=== PATIENT | female | born 1985 | race Caucasian/White ===

== ENCOUNTER 2016-11-26 14:45 | Emergency (ER) | payer OTHER ==
[2016-11-26 14:49] VITALS: BP 143/85; PULSE 76; TEMP 98.3
[2016-11-26] MEDS ORDERED: ONDANSETRON 4 MG/2 ML VIAL IVPB ONE (15:58)
[2016-11-26] MEDS ORDERED: SODIUM CHLORIDE 1,000 ML IV STA (15:58)
[2016-11-26] MEDS ORDERED: FAMOTIDINE 20 MG/50 ML IVPB 50 ML IVPB ONE ×2 (15:59→16:04)
[2016-11-26] MEDS ORDERED: SUCRALFATE 1 GM/10 ML UNIT DOSE CUPS PO STA (15:59)
[2016-11-26] MEDS ORDERED: SUCRALFATE 1 GM TABLET (FP) ONE (16:04)
[2016-11-26] MEDS ORDERED: ONDANSETRON 4 MG/2 ML VIAL ONE (16:04)
--- NOTE | 2016-11-26 16:07 | PDOC ---
History of Present Illness - General Chief Complaint: Vomiting Blood Stated Complaint: VOMITING BLOOD, PAIN Time Seen by Provider: 11/26/16 15:36 History Source: Patient - History of Present Illness Initial Comments: 11/26/16 16:04 Complaint nausea vomiting blood and vomit History of present illness: This is a 31-year-old with no significant past medical history who presents to the emergency department with 6 month history of GI discomfort located in her epigastrium intermittent usually at night associated after meeting occasionally would vomit. Patient had similar symptoms last week went to an emergency department was prescribed Levaquin which she finished. Last night patient had approximately 6 episodes of vomiting it was dark with some streaks of blood. Last episode of vomiting was 2 AM. Today at approximately 3:30 PM patient's partner convince her to come to the emergency department for evaluation pain is been intermittent moderate 5 out of 10 achy in nature worsened with drinking and eating alleviated by rest Past History - Travel Traveled outside of the country in the last 30 days: No Close contact w/someone who was outside of country & ill: No - Past Medical History Allergies/Adverse Reactions: Allergies Allergy/AdvReac Type Severity Reaction Status Date / Time No Known Allergies Allergy Verified 11/26/16 14:49 Home Medications: Ambulatory Orders Ondansetron [Ondansetron Odt] 8 mg PO TID #20 tab.rapdis 11/26/16 HTN: Yes - Suicide/Smoking/Psychosocial Hx Smoking History: Never smoked Hx Alcohol Use: No Drug/Substance Use Hx: No Review of Systems - Review of Systems Able to Perform ROS?: Yes Comments:: 11/26/16 16:06 ROS: A complete review of 10 out of 10 review of systems is taken and is negative apart from what is previously mentioned below and in the HPI. *Physical Exam - Vital Signs Last Vital Signs Temp Pulse Resp BP Pulse Ox 98.3 F 76 18 143/85 99 11/26/16 14:47 11/26/16 14:47 11/26/16 14:47 11/26/16 14:47 11/26/16 14:47 - Physical Exam Comments: 11/26/16 16:16 Vitals: Triage Vital signs reviewed General Appearance: no acute distress, well nourished well developed, Head: Atraumatic, Neck: Supple;No Nucal rigidity Chest Wall: Nontender Cardiac: Regular rate and rhythym, no murmurs, no rubs, no gallops, Lungs: Clear to auscultation bilateral, good air movement bilaterally, Abdomen: Soft, non distended, normal bowel sounds, mild epigastric tenderness to palpation Extremities: Full range of motion to all extremities, no cyanosis, clubbing, or edema Skin: Warm and dry, no rashes or lesions, no rash, no petechiae Neuro: AOX3; Cranial Nerves 2-12 grossly intact, Strength intact to all extremities, Sensation intact to all extremities,gait normal Psych: normal mood, normal affect ED Treatment Course - LABORATORY CBC & Chemistry Diagram: 11/26/16 16:30 11/26/16 16:30 Medical Decision Making - Medical Decision Making Well appearing no apparent distress mild epigastric/left upper quadrant discomfort to palpation. No vomiting in the last 12 hours. Vital signs stable very low edition for active upper GI bleed We'll check labs GI cocktail and reassess. GI followup arranged for Sat, if pt. feels better with stable labs can be d/c with close f/u. Dr. Lazo to reasses and follow up labs 11/26/16 16:45 *DC/Admit/Observation/Transfer Diagnosis at time of Disposition: Vomiting Qualifiers: Vomiting type: unspecified Vomiting Intractability: non-intractable Nausea presence: with nausea Qualified Code(s): R11.2 - Nausea with vomiting, unspecified - Discharge Dispostion Disposition: HOME Admit: No - Prescriptions Prescriptions: Ondansetron [Ondansetron Odt] 8 mg PO TID #20 tab.rapdis - Referrals Referrals: José Merritt MD [Staff Physician] - - Patient Instructions Additional Instructions: For the next 24 hours clear liquid diet only. No solid foods. Zofran as prescribed. Tomorrow called Dr. Trevino's office he has been scheduled for an appointment Saturday. Return to the emergency department for any severe abdominal pain fever or any vomiting with blood in it or for any concerns.
--- NOTE | 2016-11-26 16:30 | PDOC ---
*Physical Exam - Vital Signs Last Vital Signs Temp Pulse Resp BP Pulse Ox 98.3 F 76 18 143/85 99 11/26/16 14:47 11/26/16 14:47 11/26/16 14:47 11/26/16 14:47 11/26/16 14:47 ED Treatment Course - LABORATORY CBC & Chemistry Diagram: 11/26/16 16:30 11/26/16 16:30 Medical Decision Making - Medical Decision Making 11/26/16 18:43 pt signed out to me from dr. Espinoza 31y F no pmhx presents with n/v, epgiastric discomfort with specks of blood in her vomit. No vomiting since late last night. Pts labs reviewed and is unremarkable lipase normal pt feeling improved her abd was reassesed and is sof tnontender and pt requesting to go home pt has appt scheduled with GI on sat returnprecautions were discussed I discussed the physical exam findings, ancillary test results and final diagnoses with the patient. I answered all of the patient's questions. The patient was satisfied with the care received and felt comfortable with the discharge plan and treatment plan. The patient will call their primary care physician within 24 hours to arrange follow-up and will return to the Emergency Department with any new, persistent or worsening symptoms. *DC/Admit/Observation/Transfer Diagnosis at time of Disposition: Vomiting Qualifiers: Vomiting type: unspecified Vomiting Intractability: non-intractable Nausea presence: with nausea Qualified Code(s): R11.2 - Nausea with vomiting, unspecified - Discharge Dispostion Disposition: HOME Condition at time of disposition: Improved Admit: No - Prescriptions Prescriptions: Ondansetron [Ondansetron Odt] 8 mg PO TID #20 tab.rapdis - Referrals Referrals: José Merritt MD [Staff Physician] - - Patient Instructions Additional Instructions: For the next 24 hours clear liquid diet only. No solid foods. Zofran as prescribed. Tomorrow called Dr. Trevino's office he has been scheduled for an appointment Saturday. Return to the emergency department for any severe abdominal pain fever or any vomiting with blood in it or for any concerns.
[2016-11-26] MEDS ORDERED: MAG HYDROX/AL HYDROX/SIMETH 30 ML UNIT-DOSE CUP ONE (16:36)
[2016-11-26 16:45] LABS: BASOPHIL 1.1 % (0-2.0); EOSINOPHIL 0.3 % (0-4.5); MCH 29.4 pg (25.7-33.7); MCHC 33.9 g/dl (32.0-36.0); MEAN CELL VOLUME 86.7 fl (80-96); MEAN PLT VOLUME 8.5 fl (7.5-11.1); NEUTROPHILS 54.6 % (42.8-82.8); PLATELET COUNT 311 K/MM3 (134-434); RDW 12.8 % (11.6-15.6); WHITE BLOOD COUNT 8.4 K/mm3 (4.0-10.0)
[2016-11-26 16:56] LABS: INR 1.12 (0.82-1.09); PROTHROMBIN TIME (PATIENT) 12.6 SEC (9.98-11.88)
[2016-11-26] MEDS ORDERED: MAG HYDROX/AL HYDROX/SIMETH 30 ML UNIT-DOSE CUP PO ONE (16:57)
[2016-11-26 17:18] LABS: ALBUMIN 4.3 g/dl (3.4-5.0); ALK PHOS 103 U/L (45-117); ANION GAP 8 (8-16); BILIRUBIN,TOTAL 0.7 mg/dL (0.2-1.0); CALCIUM 9.8 mg/dL (8.5-10.1); CO2 25 mmol/L (21-32); CREATININE 0.8 mg/dL (0.55-1.02); GLUCOSE,RANDOM 83 mg/dL (74-106); SGOT/AST 26 U/L (15-37); SGPT/ALT 52 U/L (12-78); TOT PROT 8.3 g/dl (6.4-8.2)
== END 2016-11-26 18:59 | disposition home or self-care (01) ==
LOC: JER 14:45
PROC: 3E033GC Introduction of Other Therapeutic Substance into Peripheral Vein, Percutaneous Approach (ICD-10-PCS; principal; 2016-11-26)
DX: R11.2 Nausea with vomiting, unspecified (principal)
CPT/HCPCS: 36415; 80053; 83690; 84703; 85025; 85610; 86850; 86900; 86901; 96365; 96375; 99282-25

== ENCOUNTER 2016-12-11 07:10 | Day surgery (SDC) | payer OTHER ==
[2016-12-11 07:39] VITALS: BMI 30.4
[2016-12-11] MEDS ORDERED: LIDOCAINE HCL 2% (20ML MULTI-DOSE VIAL) NR ONE (07:46)
[2016-12-11] MEDS ORDERED: PROPOFOL 20 ML ONE ×2 (07:46)
[2016-12-11 08:38] VITALS: TEMP 98.4
[2016-12-11] MEDS ORDERED: ALBUTEROL SO4 2.5/IPRATROPIUM 0.5 INH SOL 3 ML VIAL.NEB. NEB ONE (08:40)
[2016-12-11 09:15] VITALS: PULSE 98
[2016-12-11 12:13] VITALS: BP 127/85
--- NOTE | 2016-12-11 14:31 | PROC ---
Endoscopy Procedure Endoscopy procedure completed. Please see scanned procedure report.
--- NOTE | 2016-12-12 15:41 | PATH ---
Surgical Pathology Report Patient Name: EBRYL JOSEPH [facility] [place]. Rec. #: [id number] /Age/Gender: 1985 (Age: 31) / F Account: [id number] Location: [facility]-ENDOSCOPY Taken: 12/11/2016 Received: 12/11/2016 Reported: 12/12/2016 Physicians: José Merritt M.D. Specimen(s) Received A: BX 2ND PORTION DUODENUM B: BX ANTRUM AND BODY C: BX DISTAL ESOPHAGUS Clinical History GERD, epigastric pain Dyspepsia, esophagitis Final Diagnosis A. SECOND PORTION DUODENUM, BIOPSY: DUODENAL MUCOSA WITH NO SIGNIFICANT PATHOLOGIC FINDINGS. B. ANTRUM AND BODY, BIOPSY: MODERATE CHRONIC GASTRITIS, MILDLY ACTIVE. IMMUNOSTAIN SHOWS NUMEROUS H. PYLORI. C. DISTAL ESOPHAGUS, BIOPSY: ESOPHAGEAL (SQUAMOUS) MUCOSA WITH NO SIGNIFICANT PATHOLOGIC FINDINGS. COLUMNAR (GASTRIC CARDIA-TYPE) MUCOSA SHOWING MODERATE CHRONIC GASTRITIS; H. PYLORI ORGANISMS ARE IDENTIFIED. NEGATIVE FOR INTESTINAL METAPLASIA. Electronically Signed Kellen Leach M.D. Gross Description A. Received in formalin, labeled "biopsy second portion of duodenum" are 2 joshi, irregular portions of soft tissue averaging 0.3 cm. in greatest dimension. The specimens are submitted in toto in one cassette. B. Received in formalin, labeled "biopsy antrum and body" are 3 joshi, irregular portions of soft tissue ranging from 0.3-0.4 cm. in greatest dimension. The specimens are submitted in toto in one cassette. C. Received in formalin, labeled "biopsy distal esophagus" are 3 joshi, irregular portions of soft tissue ranging from 0.1-0.2 cm. in greatest dimension. The specimens are submitted in toto in one cassette. DL12/11/2016 saudi12/11/2016
== END 2016-12-11 09:40 | disposition home or self-care (01) ==
LOC: JASU-ENDO 07:10
PROVIDERS: ATTEND Internal Medicine Gastroenterology
PROC: 0DB68ZX Excision of Stomach, Via Natural or Artificial Opening Endoscopic, Diagnostic (ICD-10-PCS; 2016-12-11)
PROC: 0DB48ZX Excision of Esophagogastric Junction, Via Natural or Artificial Opening Endoscopic, Diagnostic (ICD-10-PCS; 2016-12-11)
PROC: 0DB98ZX Excision of Duodenum, Via Natural or Artificial Opening Endoscopic, Diagnostic (ICD-10-PCS; principal; 2016-12-11 08:00)
DX: K20.9 Esophagitis, unspecified (principal)
CPT/HCPCS: 84703; 88305-TC; 88342-TC

== ENCOUNTER 2017-08-16 10:24 | Day surgery (SDC) | payer OTHER ==
[2017-08-15 11:47] VITALS: BMI 31.2
[2017-08-16] MEDS ORDERED: LIDOCAINE HCL/PF 2% SDV 5ML VIAL ONE (11:18)
[2017-08-16] MEDS ORDERED: PROPOFOL 20 ML ONE (11:18)
[2017-08-16] MEDS ORDERED: MIDAZOLAM HCL 2 MG/2 ML SINGLE DOSE VIAL ONE (11:18)
[2017-08-16] MEDS ORDERED: DEXAMETHASONE SOD PHOSPHATE 4 MG/1 ML VIAL ONE (11:18)
[2017-08-16] MEDS ORDERED: fentaNYL CITRATE 250 MCG/5 ML VIAL ONE (11:18)
[2017-08-16 11:28] LABS: URINE APPEARANCE CLEAR; URINE BILIRUBIN NEGATIVE (<2.0 mg/dL); URINE COLOR YELLOW; URINE GLUCOSE (UA) NEGATIVE (NEGATIVE); URINE KETONE NEGATIVE (NEGATIVE); URINE LEUK ESTERASE NEGATIVE (NEGATIVE); URINE NITRITE NEGATIVE (NEGATIVE); URINE PROTEIN NEGATIVE (NEGATIVE); URINE UROBILINOGEN NEGATIVE mg/dL (0.2-1.0)
[2017-08-16 11:49] VITALS: BP 136/82; PULSE 79; TEMP 98.5
[2017-08-16] MEDS ORDERED: KETOROLAC TROMETHAMINE 30 MG/1 ML VIAL ONE (11:53)
--- NOTE | 2017-08-16 12:27 | HP ---
History & Physical Update - History History: Change (see notes) Currently as noted:: Patient is , with positive test. - Physical Physical: No Change (Patient is and here for excision of accessory breast / extension into her left axilla. Surgery is cancelled. Patient is informed through a spiral gear generator, Sherwin , manager compliance no. [id number]. She is advised to return after the and after she has completed breast feeding. Procedure is cancelled.)
== END 2017-08-16 12:15 | disposition home or self-care (01) ==
LOC: JOR 10:24 → JASU-SURG 10:24 → JOR 12:15
PROVIDERS: ATTEND Specialist
PROC: 0RJN4ZZ Inspection of Right Wrist Joint, Percutaneous Endoscopic Approach (ICD-10-PCS; principal; 2017-08-16)
DX: Z53.8 Procedure and treatment not carried out for other reasons (principal)
CPT/HCPCS: 81003; 84703

== ENCOUNTER 2021-10-26 16:46 | Emergency (ER) | payer OTHER ==
[2021-10-26 16:55] VITALS: BP 120/85; RESP 18; TEMP 98.4; BMI 31.2
[2021-10-26] MEDS ORDERED: KETOROLAC TROMETHAMINE 30 MG/1 ML VIAL IM ONE (17:47)
[2021-10-26] MEDS ORDERED: KETOROLAC TROMETHAMINE 30 MG/1 ML VIAL ONE (18:28)
[2021-10-26 18:42] VITALS: PULSE 62
== END 2021-10-26 19:02 | disposition home or self-care (01) ==
LOC: JERFT 16:46
PROC: 3E023GC Introduction of Other Therapeutic Substance into Muscle, Percutaneous Approach (ICD-10-PCS; principal; 2021-10-26)
DX: M54.2 Cervicalgia (principal); M54.89 Other dorsalgia
CPT/HCPCS: 71046-TC-FY; 99284-25

== ENCOUNTER 2022-09-26 14:29 | Emergency (ER) | payer OTHER ==
[2022-09-26 14:34] VITALS: BP 133/78; PULSE 82; RESP 18; TEMP 96; BMI 31.2
[2022-09-26] MEDS ORDERED: LIDOCAINE 5% TOPICAL PATCH TP ONE (15:56)
[2022-09-26] MEDS ORDERED: LIDOCAINE 5% TOPICAL PATCH ONE (15:59)
[2022-09-26 16:13] LABS: URINE APPEARANCE CLEAR; URINE BILIRUBIN NEGATIVE (NEGATIVE); URINE COLOR YELLOW; URINE GLUCOSE (UA) NEGATIVE (NEGATIVE); URINE KETONE NEGATIVE (NEGATIVE); URINE LEUK ESTERASE NEGATIVE (NEGATIVE); URINE NITRITE NEGATIVE (NEGATIVE); URINE PROTEIN NEGATIVE (NEGATIVE); URINE UROBILINOGEN 0.2 mg/dL (0.2-1.0)
[2022-09-26 16:16] LABS: HCG,QUALITATIVE URINE Negative
[2022-09-26] MEDS ORDERED: KETOROLAC TROMETHAMINE 30 MG/1 ML VIAL IM ONE (16:34)
[2022-09-26] MEDS ORDERED: KETOROLAC TROMETHAMINE 15 MG/ML VIAL ONE (16:52)
== END 2022-09-26 18:34 | disposition home or self-care (01) ==
LOC: JERFT 14:29
PROC: 3E0233Z Introduction of Anti-inflammatory into Muscle, Percutaneous Approach (ICD-10-PCS; principal; 2022-09-26)
DX: M54.50 Low back pain, unspecified (principal)
CPT/HCPCS: 72131-TC; 81003; 84703; 87086; 99284-25

== ENCOUNTER 2022-12-02 08:49 | Emergency (ER) | payer OTHER ==
[2022-12-02 08:55] VITALS: BMI 30.2
[2022-12-02] MEDS ORDERED: SODIUM CHLORIDE 0.9% 500 ML INFUS.BAG IV ONE (10:57)
[2022-12-02] MEDS ORDERED: FAMOTIDINE 20 MG/50 ML IVPB 20 MG/50 ML MG IVPB ONE (10:57)
[2022-12-02] MEDS ORDERED: ACETAMINOPHEN 1000 MG/100 ML BAG IVPB ONE (10:58)
[2022-12-02] MEDS ORDERED: MAG HYDROX/AL HYDROX/SIMETH -MYLANTA- ORAL SUSPENSION PO ONE (10:59)
[2022-12-02] MEDS ORDERED: ACETAMINOPHEN INJECTION 100 ML IVPB ONE (12:25)
[2022-12-02] MEDS ORDERED: FAMOTIDINE 10 MG/ML VIAL IVPB ONE (12:26)
[2022-12-02 12:30] LABS: BASO % 0.9 % (0-2.0); EOS % 0.6 % (0-4.5); HEMATOCRIT 41.2 % (32.4-45.2); HEMOGLOBIN 14.2 GM/dL (10.7-15.3); LYMPH % 44.5 % (8-40); MCHC 34.5 g/dl (32.0-36.0); MEAN CELL VOLUME 86.9 fl (80-96); MEAN PLT VOLUME 7.8 fl (7.5-11.1); MONO % 7.6 % (3.8-10.2); NEUT % 46.4 % (42.8-82.8); PLATELET COUNT 318 10^3/uL (134-434); RBC 4.74 M/mm3 (3.60-5.2); RDW 12.6 % (11.6-15.6); WHITE BLOOD COUNT 6.6 K/mm3 (4.0-10.0)
[2022-12-02 12:33] LABS: INR 1.14 (0.83-1.09); PROTHROMBIN TIME (PATIENT) 13.2 SEC (9.7-13.0)
[2022-12-02 12:36] LABS: ACTIVATED PTT 30.8 SECONDS (25.2-36.5)
[2022-12-02 12:44] LABS: POTASSIUM 3.5 mmol/L (3.5-5.1)
[2022-12-02 12:46] LABS: CALCIUM 9.1 mg/dL (8.5-10.1)
[2022-12-02 12:47] LABS: ALBUMIN 4.1 g/dl (3.4-5.0); BLOOD UREA NITROGEN 9.4 mg/dL (7-18); MAGNESIUM 1.8 mg/dL (1.8-2.4)
[2022-12-02 12:50] LABS: CREATININE 0.8 mg/dL (0.55-1.3)
[2022-12-02 12:52] LABS: BILIRUBIN,TOTAL 0.3 mg/dL (0.2-1); TOT PROT 8.4 g/dl (6.4-8.2)
[2022-12-02] MEDS ORDERED: MAG HYDROX/AL HYDROX/SIMETH 30 ML UNIT-DOSE CUP ONE (13:56)
[2022-12-02 15:25] VITALS: BP 111/68; RESP 17; TEMP 98.5
[2022-12-02 17:29] VITALS: PULSE 95
== END 2022-12-02 15:20 | disposition home or self-care (01) ==
LOC: JER 08:49
PROC: 3E033GC Introduction of Other Therapeutic Substance into Peripheral Vein, Percutaneous Approach (ICD-10-PCS; principal; 2022-12-02)
PROC: 3E033NZ Introduction of Analgesics, Hypnotics, Sedatives into Peripheral Vein, Percutaneous Approach (ICD-10-PCS; 2022-12-02)
DX: R07.2 Precordial pain (principal); R06.02 Shortness of breath
CPT/HCPCS: 36415; 71046-TC-FY; 80053; 83690; 83735; 84484; 85025; 85379; 85610; 85730; 93005; 93010; 99285-25

== ENCOUNTER 2023-02-03 07:13 | Emergency (ER) | payer OTHER ==
[2023-02-03 07:41] VITALS: BP 137/86; PULSE 89; RESP 17; TEMP 98.8; BMI 32.8
[2023-02-03] MEDS ORDERED: IBUPROFEN 600 MG TABLET (FP) PO ONE ×2 (08:19→08:43)
[2023-02-03] MEDS ORDERED: AMOXICILLIN 500 MG CAPSULE (FP) PO ONE (08:19)
[2023-02-03] MEDS ORDERED: AMOXICILLIN 500 MG CAPSULE (FP) ONE (08:43)
== END 2023-02-03 09:19 | disposition home or self-care (01) ==
LOC: JER 07:13
DX: R07.0 Pain in throat (principal); R09.81 Nasal congestion; R05.9 Cough, unspecified; H92.02 Otalgia, left ear; R13.10 Dysphagia, unspecified; R68.83 Chills (without fever); M79.10 Myalgia, unspecified site; J02.0 Streptococcal pharyngitis; J06.9 Acute upper respiratory infection, unspecified; Z20.822 Contact with and (suspected) exposure to COVID-19
CPT/HCPCS: 0241U-QW; 87651; 99283-25

== ENCOUNTER 2023-09-10 13:57 | Emergency (ER) | payer OTHER ==
[2023-09-10 14:07] VITALS: BP 120/78; PULSE 90; RESP 16; TEMP 97.7; BMI 34.7
[2023-09-10] MEDS ORDERED: LIDOCAINE 4% PATCH TP ONE (15:11)
[2023-09-10] MEDS ORDERED: KETOROLAC TROMETHAMINE 30 MG/1 ML VIAL ONE (15:11)
[2023-09-10] MEDS: LIDOCAINE 4% PATCH TP ONE (15:18)
[2023-09-10] MEDS: KETOROLAC TROMETHAMINE 30 MG/1 ML VIAL IM ONE (15:18)
[2023-09-10] MEDS ORDERED: LIDOCAINE PATCH REMOVAL MC ONE (22:00)
== END 2023-09-10 15:35 | disposition home or self-care (01) ==
LOC: JERFT 13:57
PROC: 3E0133Z Introduction of Anti-inflammatory into Subcutaneous Tissue, Percutaneous Approach (ICD-10-PCS; principal; 2023-09-10)
DX: S16.1XXA Strain of muscle, fascia and tendon at neck level, initial encounter (principal); M43.6 Torticollis; X58.XXXA Exposure to other specified factors, initial encounter
CPT/HCPCS: 99284-25

== ENCOUNTER 2023-11-14 05:58 | Emergency (ER) | payer OTHER ==
[2023-11-14 06:11] VITALS: TEMP 98.4; BMI 32.8
[2023-11-14] MEDS ORDERED: CYCLOBENZAPRINE HCL 10 MG TABLET (FP) ONE (06:34)
[2023-11-14] MEDS ORDERED: LIDOCAINE 5% TOPICAL PATCH ONE (06:35)
[2023-11-14] MEDS ORDERED: KETOROLAC TROMETHAMINE 30 MG/1 ML VIAL ONE (06:35)
[2023-11-14] MEDS: LIDOCAINE 5% TOPICAL PATCH TP ONE (06:43)
[2023-11-14] MEDS: CYCLOBENZAPRINE HCL 10 MG TABLET (FP) PO ONE (06:43)
[2023-11-14] MEDS: KETOROLAC TROMETHAMINE 30 MG/1 ML VIAL IM ONE (06:43)
[2023-11-14 07:29] VITALS: BP 124/96; PULSE 95; RESP 16
[2023-11-14] MEDS ORDERED: LIDOCAINE PATCH REMOVAL MC ONE (19:00)
== END 2023-11-14 08:05 | disposition home or self-care (01) ==
LOC: JER 05:58
PROC: 3E0133Z Introduction of Anti-inflammatory into Subcutaneous Tissue, Percutaneous Approach (ICD-10-PCS; principal; 2023-11-14)
DX: S16.1XXA Strain of muscle, fascia and tendon at neck level, initial encounter (principal); X50.0XXA Overexertion from strenuous movement or load, initial encounter
CPT/HCPCS: 99284-25